=== PATIENT | female | born 1990 | race Caucasian/White ===

== ENCOUNTER 2019-12-24 12:41 | Observation (INO) | payer OTHER, SELFPAY ==
--- NOTE | 2019-12-24 12:41 | OBADM ---
This patient, Mayra Reilly, admitted to the OB room Labor/Delivery/Recovery 106 for observation. Patient/family oriented to hospital policies and general routines including ID bracelet, bed and alarms, visiting hours, pain management, procedures, bathroom and other care routines, personal items, smoking policy, room service/diet, and visiting hours. Patient/Family are encouraged to report perceived risks to care and to ask questions if they do not understand what they are told or what they should do.
[2019-12-24 12:55] VITALS: TEMP 36.3; BMI 37.4
[2019-12-24 13:16] VITALS: BP 115/56; PULSE 66
[2019-12-24 13:31] VITALS: BP 112/65; PULSE 58
[2019-12-24 13:46] VITALS: BP 116/73; PULSE 59
[2019-12-24 13:53] LABS: Add Urine Microscopic? YES; Appearance Urine Cloudy (Clear); Bacteria Urine Trace /hpf; Bilirubin Urine Negative (Negative); Blood Urine Negative (Negative); Calcium Oxalate Crystals Urine Many /hpf; Color Urine Yellow (Yellow); Glucose Urine UA Negative (Negative); Ketones Urine 2+ mg/dL (Negative); Leukocyte Esterase Ur Negative LEU/UL (NEGATIVE); Mucus Urine Heavy /lpf; Nitrate Urine Negative (Negative); Protein Urine Negative (Negative); RBC Urine 0-2 /hpf (0-2); Specific Grav Ur 1.016 (1.001-1.035); Squamous Epithelial Cell Urine Few /hpf (Few)
[2019-12-24 14:01] VITALS: BP 123/69; PULSE 56
[2019-12-24 14:16] VITALS: BP 109/57; PULSE 56
[2019-12-24] MEDS: DEXTROSE 5%/0.9% SOD CHL 1,000 ML 999 ML IV CONT (14:27)
[2019-12-24] MEDS: NITROFURANTOIN MONOHYD MACROCR 100 MG CAP (14:39)
[2019-12-24] MEDS: ACETAMINOPHEN 500 MG TABLET 1000 MG PO (15:51)
--- NOTE | 2020-01-01 13:12 | PM.OBTRLD ---
OB - Triage/Final Diagnosis Evaluation Laboratory results: Laboratory Tests 12/24/19 13:32 Urine Color Yellow Urine Appearance Cloudy H Urine pH 6.0 Ur Specific [place] 1.016 Urine Protein Negative Urine Glucose (UA) Negative Urine Ketones 2+ H Ur Blood (Man) Negative Urine Nitrate Negative Urine Bilirubin Negative Urine Urobilinogen 2.0 H Ur Leukocyte Esterase Negative Urine RBC 0-2 Urine WBC 7-9 H Ur Squamous Epith Cells Few Calcium Oxalate Crystal Many Urine Bacteria Trace Urine Mucus Heavy H Final Diagnosis (1) Pelvic pressure in : Code(s): O26.899 - Other specified related conditions, unspecified trimester; R10.2 - Pelvic and perineal pain Status: Acute
== END 2019-12-24 16:00 | disposition home or self-care (01) ==
PROVIDERS: Admitting Provider Obstetrics & Gynecology; Visit Provider Obstetrics & Gynecology
DX: O26.893 Other specified pregnancy related conditions, third trimester (principal); R10.2 Pelvic and perineal pain; Z3A.37 37 weeks gestation of pregnancy
CPT/HCPCS: 81001; 87086; 87088; A9270; G0378; G0379; J7042

== ENCOUNTER 2019-12-26 10:40 | Outpatient (RCR) | payer OTHER, SELFPAY ==
[2019-12-26 11:49] VITALS: BP 125/70; PULSE 68
== END 2020-01-08 07:38 | disposition home or self-care (01) ==
LOC: ANHOBOP 10:40
PROVIDERS: Visit Provider Obstetrics & Gynecology
DX: O36.8130 Decreased fetal movements, third trimester, not applicable or unspecified (principal); Z3A.37 37 weeks gestation of pregnancy
CPT/HCPCS: 59025

== ENCOUNTER 2020-01-07 06:01 | Inpatient (IN) | payer OTHER, SELFPAY ==
--- NOTE | 2020-01-06 22:00 | OBPPTRN ---
Patient transferred to post room # via ( ). Support person present. Oriented to unit, room, information board, rooming in, admission packet and security measures. Patient verbalizes understanding.
--- NOTE | 2020-01-06 22:00 | OBPPTRN ---
Patient transferred to post room #292 via wheelchair. Friends present at time of admission. Oriented to unit, room, information board, rooming in, admission packet and security measures. Patient verbalizes understanding.
[2020-01-07] VITALS (164 sets, daily range): BP systolic 103–168; BP diastolic 44–121; PULSE 33–164; RESP 16; TEMP 36.8–37.4; O2SAT 90–100; BMI 30.9; BMI 36.7
--- NOTE | 2020-01-07 06:23 | LDADM ---
This patient, Mayra Reilly, was admitted to Labor/Delivery/Recovery 106 on 01/07/20 at 06:01. Plans for cesearen section, pain management and were discussed with patient. Patient/family oriented to hospital policies and general routines including ID bracelet, bed and alarms, visiting hours, pain management, procedures, bathroom and other care routines, personal items, smoking policy, room service/diet and guest tray routines, infant security routines, and visiting hours. Patient/Family are encouraged to report perceived risks to care and to ask questions if they do not understand what they are told or what they should do. See OBIX for further documentation.
[2020-01-07 06:55] LABS: Basophils Percent Auto 0.3 % (0.2-1.2); Eosinophils Percent Auto 0.4 % (0-4.4); Hematocrit 36.1 % (37.0-47.0); Hemoglobin 11.9 g/dL (12.0-15.0); Immature Granulocyte Absolute 0.05 K/mm3 (0.00-0.031); Immature Granulocyte Percent A 0.5 % (0-0.5); Lymphocytes Absolute Auto 1.63 K/mm3 (0.9-3.2); Lymphocytes Percent Auto 16.7 % (18.3-44.2); Mean Corpuscular Hemoglobin 29.5 pg (26-34); Mean Corpuscular Volume 89.6 fl (80-100); Mean Platelet Volume 10.9 fl (7.4-10.4); Monocytes Absolute Auto 0.9 K/mm3 (0.1-0.6); Monocytes Percent Auto 9.2 % (2.6-8.5); Neutrophils Absolute Auto 7.1 K/mm3 (1.3-6.7); Neutrophils Percent Auto 72.9 % (45.5-73.1); Platelet Count Result 203 k/mm3 (150-375); Red Blood Count 4.03 M/mm3 (4.2-5.4); Red Cell Distribution Width 13.2 % (11.5-14.5); White Blood Count 9.8 K/mm3 (4.5-10.0)
[2020-01-07] MEDS: LACTATED RINGERS 1,000 ML 125 ML IV CONT ×3 (07:14→11:24)
--- NOTE | 2020-01-07 08:50 | WPDOBADMIT ---
Obstetrics - Admit Note Admission Note: record reviewed. 29 y/o at 39 weeks here desiring induction of labor. GBS neg. AVSS NST reactive TOCO: irregular contractions ABD soft, nontender, gravid, vertex EXT nontender Cervix 3/50/-2. AROM with clear fluid. IUPC placed. A: IUP at term with favorable cervix. P: Oxytocin. Anticipate .
[2020-01-07 09:25] LABS: Rapid Plasma Reagin Non-Reactive (NonReactive)
--- NOTE | 2020-01-07 11:20 | WPDANESEPP ---
Anes - Eval Pre Procedure Procedure: Labor Epidural Date/Time: 01/07/20 11:20 Surgeon: Dr. Daniel Preop Diagnosis: Labor Pain Pre Op Diagnosis: induction of labor Patient Data Age: 29 Gender: F Height: 5 ft 4 in Weight: 97 kg Last Vital Signs Temp 37.1 C 01/07/20 09:57 Pulse 63 01/07/20 11:19 BP 132/59 L 01/07/20 11:19 Pulse Ox 96 01/07/20 11:18 Allergies Allergy/AdvReac Type Severity Reaction Status Date / Time Penicillins Allergy Severe Anaphylaxis Verified 12/02/19 02:47 azithromycin Allergy Intermediate Rash Verified 12/02/19 02:53 [From Zithromax Z-Ben] morphine AdvReac Unknown Anaphylaxis Verified 12/26/19 12:18 Home Medications Medication Instructions Recorded Confirmed Type PNV cmb#95-ferrous fumarate-FA 1 tablet PO DAILY 12/16/19 12/26/19 History [] fluoxetine [Prozac] 40 mg PO DAILY 12/16/19 12/26/19 History zolpidem [Ambien] 5 mg PO HS PRN 12/16/19 12/26/19 History calcium carbonate [Calcium 600] 600 mg PO DAILY 12/26/19 12/26/19 History Laboratory Tests 01/07/20 01/07/20 01/07/20 06:47 06:47 06:47 WBC 9.8 K/mm3 K/mm3 (4.5-10.0) RBC 4.03 M/mm3 L M/mm3 (4.2-5.4) Hgb 11.9 g/dL L g/dL (12.0-15.0) Hct 36.1 % L % (37.0-47.0) MCV 89.6 fl fl (80-100) MCH 29.5 pg pg (26-34) MCHC 33.0 g/dl g/dl (32-36) RDW 13.2 % % (11.5-14.5) Plt Count 203 k/mm3 k/mm3 (150-375) MPV 10.9 fl H fl (7.4-10.4) Immature Gran % (Auto) 0.5 % % (0-0.5) Neut % (Auto) 72.9 % % (45.5-73.1) Lymph % (Auto) 16.7 % L % (18.3-44.2) [place] % (Auto) 9.2 % H % (2.6-8.5) Eos % (Auto) 0.4 % % (0-4.4) Baso % (Auto) 0.3 % % (0.2-1.2) Lymph # (Auto) 1.63 K/mm3 K/mm3 (0.9-3.2) [place] # (Auto) 0.9 K/mm3 H K/mm3 (0.1-0.6) Eos # (Auto) 0.0 K/mm3 K/mm3 (0-0.3) Baso # (Auto) 0.0 K/mm3 K/mm3 (0.0-0.1) Abs Immat Gran (auto) 0.05 K/mm3 H K/mm3 (0.00-0.031) Absolute Neuts (auto) 7.1 K/mm3 H K/mm3 (1.3-6.7) Absolute Nucleated RBC 0.0 K/mm3 K/mm3 (0.0-0.012) Nucleated RBC % 0.0 % % (0.0-0.2) RPR Non-reactive (NonReactive) Blood Type O Positive Antibody Screen Negative : gestational age (SMOOTH 01/14/20) HCG: positive Patient hx anesthesia problems: none Family hx anesthesia problems: none [facility] Family History Family History Other Diabetes mellitus Heart disease Hypertension Social History Social History Smoking status: Never smoker Substance use: never Gender identity (if verbalized by the patient): Female Spiritual care concerns: No Exam Day of Procedure 01/07/20 11:20 Patient weight: obese Heart: regular rate and rhythm Lungs: normal air movement Airway: Mallampati scale class II Neurological: alert and oriented
--- NOTE | 2020-01-07 12:10 | PM.OBPNLAB ---
Pain Control Date/time seen: 01/07/20 12:48 Comments: Comfortable with epidural. Pelvic Exam Dilation (cm): 5 Effacement (%): 80 station: -2 Comments: AVSS NST reactive TOCO: Contractions every 2-3 min Continue labor.
--- NOTE | 2020-01-07 17:50 | PM.OBPNLAB ---
Pain Control Date/time seen: 01/07/20 9435 Comments: Pushing. Pelvic Exam Comments: AVSS NST reactive TOCO: contractions every 2-3 min Cervix C/+1, ROP Continue pushing.
--- NOTE | 2020-01-07 17:50 | P.PNOB_ITS ---
Pain Control Date/time seen: 01/07/20 6377 Comments: Pushing. Pelvic Exam Comments: AVSS NST reactive TOCO: contractions every 2-3 min Cervix C/+1, ROP Continue pushing.
--- NOTE | 2020-01-07 19:23 | PM.OBPRVD ---
OB - Delivery Note Procedure Delivery date: 01/07/20 Procedure: Induction of labor with Induction method: AROM and per pitocin protocol Delivery monitor: external FHT, external uterine and internal FHT Route of delivery: Delivery repair: vicryl (3-0 Vicryl) Specimen: Yes (Cord blood) Estimated blood loss (mL): 345 Anesthesia type: Epidural Disposition: PACU Complications: None Narrative: [id number] 3 para 0020 at 39 weeks gestation who presented to the hospital for induction of labor. Oxytocin was administered intravenously. Amniotomy was performed with return of clear fluid. She received an epidural for pain control. Her labor progressed and her cervix dilated completely. She pushed with good effort. The rotated from the right occiput posterior position to the right occiput anterior position, and the head delivered to the perineum. A loose nuchal cord was splinted. The body delivered. The cord was reduced. The nose and mouth were bulb suctioned. After a delay, the cord was clamped and cut. The infant was handed off the field. Cord blood was collected. The placenta delivered spontaneously and was grossly normal in appearance. The usual 3 vessel cord was noted. A right labial laceration was reapproximated with a single [id number] suture of 3 O Vicryl. Distal vaginal lacerations were similarly reapproximated. Excellent hemostasis resulted as did excellent reapproximation of the normal anatomy. Needle and instrument counts were correct. The patient was taken to recovery room in stable condition. The infant went to the nursery in stable condition. I was present and scrubbed for the entire delivery. Baby Date of : 01/07/20 Time of : 19:00 Weeks of gestation at delivery: 39 Infant gender: Female Weight (pounds): 6 Weight (ounces): 12 presentation: vertex position: Right Occiput Anterior Placenta delivery description: Spontaneous and Normal Configuration cord vessel description: 3 Vessels score one minute: 8 score five minutes: 9
--- NOTE | 2020-01-07 19:29 | P.DS_ITS ---
DS: Diagnosis Admitting Diagnosis Admitting Diagnosis: IUP at 39 weeks Discharge Diagnosis (1) (normal spontaneous vaginal delivery): Code(s): O80 - Encounter for full-term uncomplicated delivery Status: Acute DS: Summary Time Spent with Patient Time attestation: Total time spent providing and/or coordinating discharge services: DS: Data Data Completed and Pending Labs on day of discharge: Labs from last 24 hours 01/07/20 01/07/20 01/07/20 06:47 06:47 06:47 WBC 9.8 RBC 4.03 L Hgb 11.9 L Hct 36.1 L MCV 89.6 MCH 29.5 MCHC 33.0 RDW 13.2 Plt Count 203 MPV 10.9 H Immature Gran % (Auto) 0.5 Neut % (Auto) 72.9 Lymph % (Auto) 16.7 L [place] % (Auto) 9.2 H Eos % (Auto) 0.4 Baso % (Auto) 0.3 Lymph # (Auto) 1.63 [place] # (Auto) 0.9 H Eos # (Auto) 0.0 Baso # (Auto) 0.0 Abs Immat Gran (auto) 0.05 H Absolute Neuts (auto) 7.1 H Absolute Nucleated RBC 0.0 Nucleated RBC % 0.0 RPR Non-reactive Blood Type O Positive Antibody Screen Negative Discharge Plan Discharge Attending physician on discharge: Chemo Daniel Discharging Clinician: Chemo Daniel Patient Disposition: Home, Self-Care Activity: pelvic rest Diet: regular Discharge Instructions: Call or return if temperature above 100.4? F, increased abdominal pain, increased vaginal bleeding or any new problems. Stand Alone Forms: General Discharge Information Follow-up/Referrals: Chemo Daniel MD [Physician] - (6 weeks) Discharge Medications: New hydrocodone-acetaminophen [[place]] 5-325 mg tablet 1 tablet PO Q6H PRN (Reason: pain) Qty: 20 RF: 0 fluoxetine 40 mg capsule 40 mg PO QAM Qty: 30 RF: 1 ibuprofen 600 mg tablet 600 mg PO Q6H PRN (Reason: cramps) Qty: 30 RF: 0 Continued fluoxetine [Prozac] 20 mg Capsule 40 mg PO DAILY Qty: 30 RF: 1 No Action zolpidem [Ambien] 5 mg Tablet 5 mg PO HS PRN (Reason: Sleep) RF: 0 PNV cmb#95-ferrous fumarate-FA [] 28 mg iron- 800 mcg Tablet 1 tablet PO DAILY RF: 0 calcium carbonate [Calcium 600] 600 mg calcium (1,500 mg) Tablet 600 mg PO DAILY RF: 0 Date of admission: 01/07/20 06:01 Primary Care Provider: UNKNOWN,DOCTOR Admitting Provider: Chemo Daniel Attending physician on admission: Chemo Daniel
[2020-01-07] MEDS: WITCH HAZEL 40 PADS 1 PAD TOPICAL (20:26)
[2020-01-07] MEDS: BENZOCAINE 20% AER SPR (*SP) 56 GM CAN 1 SPRAY TOPICAL (20:26)
[2020-01-07] MEDS: IBUPROFEN 600 MG TABLET PO (20:27)
[2020-01-07] MEDS: LANOLIN (LANSINOH) 7.5 GM CREAM 1 APPLIC TOPICAL (23:51)
[2020-01-07] MEDS: DIBUCAINE 1% OINTMENT 30 GM TUBE 1 APPLIC TOPICAL (23:51)
--- NOTE | 2020-01-08 03:40 | PC.NURSE ---
Breast pump provided due to mother request and inability for to latch successfully since . Instructions given on breast pump care and usage, pumping schedule, nipple care, and collection and storage of breast milk. Encouraged [id number], breast massage and manual expression to stimulate supply. Pumping log provided and reviewed. Assessed patient for correct flange size, placement and draw. Pt given a 27mm flange for right breast and 24mm flange for left breast. Patient verbalizes and demonstrates understanding of instructions.
[2020-01-08] MEDS: IBUPROFEN 600 MG TABLET PO ×3 (04:09→20:04)
[2020-01-08 05:36] LABS: Hematocrit 32.5 % (37.0-47.0); Hemoglobin 10.7 g/dL (12.0-15.0)
[2020-01-08 08:00] VITALS: BP 113/75; PULSE 85; RESP 18; TEMP 36.6; O2SAT 100
[2020-01-08] MEDS: MULTIVIT/MIN/PREN/FOL AC/IRON TABLET 1 TAB PO (08:35)
[2020-01-08] MEDS: LANOLIN (LANSINOH) 7.5 GM CREAM 1 APPLIC TOPICAL (08:35)
[2020-01-08] MEDS: DOCUSATE SODIUM 100 MG CAPSULE PO ×2 (08:35→17:36)
[2020-01-08] MEDS: WITCH HAZEL 40 PADS 1 PAD TOPICAL (08:35)
[2020-01-08] MEDS: BENZOCAINE 20% AER SPR (*SP) 56 GM CAN 1 SPRAY TOPICAL (08:35)
[2020-01-08] MEDS: FLUOXETINE HCL 20 MG CAP 40 MG PO (08:36)
--- NOTE | 2020-01-08 08:45 | PM.OBPNVD ---
OB - PN: Subj Subjective Date/time seen: 01/08/20 0845 Narrative: Pain OK. OB - PN: Obj Data Labs CBC & Chem 7: 01/08/20 04:12 Labs: Laboratory Results - last 24 hr 01/08/20 04:12 Hgb 10.7 L Hct 32.5 L OB - PN A/P Plan Comments: A: PPD#1, doing well. P: Routine care. Exam Psych: Other: AVSS ABD soft, nontender, fundus firm EXT nontender
--- NOTE | 2020-01-08 11:20 | PCCCNOTE ---
Care Coordination. Pt. referred to CC for 's recent by suicide a month ago. Pt. reports having great family support from her family as well as late 's family. She appeared in good spirits and bonding with baby during my visit. She had baby shower and got all necessary baby care items and more. She plans to go home with her mother for a night or two. She has friends that are going to be coming to help additionally as well as late 's family as well. She is currently seeing a counselor weekly, but I did give her more names as well. Discussed grief and post with pt. and to be watching for signs. Pt. encouraged to reach out to family, friends, and counselor as much as needed. Pt. is setup with WIC also. No further SS needs.
--- NOTE | 2020-01-08 13:20 | PC.NURSE ---
Consulted with patient, mother reports infant has been sleepy and unable to latch due to tied tongue. Mother is pumping and giving EBM each feeding. Mother has attempted latch using nipple shield without a successful latch. Infant has been gaggy and spitty since . Frenulum is noted to end of tongue, tongue does not go past gum ridge. Reviewed infant feeding cues, frequencies, duration of feedings, feeding elimination flow sheet, and signs of adequate intake. Demonstrated stimulation techniques to wake for feeding. Assisted with infant to breast. Reviewed positioning/alignment in cross , holding breast in U hold and guided asymmetrical latch on. Discussed rational for each. Infant was unable to latch correctly. Assisted with bottle feeding, Infant does not suck rhythmically. has a short chewy suck on bottle nipple. Report to [facility].
[2020-01-08 20:00] VITALS: BP 117/66; PULSE 68; RESP 18; TEMP 36.2
[2020-01-09] MEDS: TETANUS,DIPHTHERIA,AC PERTUSSIS ADULT 0.5 ML (ADACEL) IM (05:25)
[2020-01-09] MEDS: IBUPROFEN 600 MG TABLET PO (05:30)
--- NOTE | 2020-01-09 08:45 | PC.NURSE ---
Mother continues to work with latching infant, infant is sleepy and makes eager efforts to latch. is able to maintain latch for bursts after tongue frenulectomy. Mother is able to independently latch with appropriate positioning/alignment. Infant remains sleepy and mother will supplement after all feedings. She continues to pump after each attempts. She denies any nipple discomfort, is feeding as required and waking to feed if needed. is currently meeting outcomes for weight, output, jaundice and feeding frequencies. Mother states she feels confident to continue current feeding plan at home. Reviewed transition to breast milk, signs of adequate intake, and engorgement/relief. Instructed to call ICP if intake/output less than required. Reviewed regular medications mother is taking. Information provided per Nelsy. Reviewed community resources on the [facility] website and in the Mom/Baby guide. Information on outpatient services provided. Mother has no further questions at this time. Mother is a [facility] client and will follow with local office with assistance, as it is closer to her home. Mother has a pump for home use and is pumping without difficulties.
[2020-01-09 08:50] VITALS: BP 134/66; PULSE 67; RESP 18; TEMP 36.1
[2020-01-09] MEDS: MULTIVIT/MIN/PREN/FOL AC/IRON TABLET 1 TAB PO (08:53)
[2020-01-09] MEDS: FLUOXETINE HCL 20 MG CAP 40 MG PO (08:54)
--- NOTE | 2020-01-09 09:00 | PM.OBPNVD ---
OB - PN: Subj Subjective Date/time seen: 01/09/20 09:00 Narrative: Pain OK. Would like to go home. OB - PN: Obj Data Labs CBC & Chem 7: 01/08/20 04:12 OB - PN A/P Plan Comments: A: PPD#2, doing well. P: Home to f/u 6 weeks. Exam Psych: Other: AVSS ABD soft, nontender, fundus firm EXT nontender
[2020-01-10 08:28] VITALS: BP 110/72; PULSE 74; RESP 20; TEMP 36.9
== END 2020-01-09 12:34 | disposition home or self-care (01) | DRG 560 ==
LOC: ANHLDR 19:31 → ANHOB2 22:27
PROVIDERS: Admitting Provider Obstetrics & Gynecology; Visit Provider Obstetrics & Gynecology
DX: O69.81X0 Labor and delivery complicated by cord around neck, without compression, not applicable or unspecified (principal); Z37.0 Single live birth; Z3A.39 39 weeks gestation of pregnancy; O99.214 Obesity complicating childbirth; E66.9 Obesity, unspecified; O75.2 Pyrexia during labor, not elsewhere classified; O71.4 Obstetric high vaginal laceration alone
CPT/HCPCS: 36415; 85014; 85018; 85025; 86592; 86850; 86900; 86901; 90715; A9270; J2590; J2795; J3010; J7120

== ENCOUNTER 2020-06-26 02:44 | Day surgery (SDC) | payer OTHER, SELFPAY ==
--- NOTE | 2020-06-25 15:09 | PM.IMHP ---
H&P: HPI History of Present Illness Chief complaint: pain Narrative: Mayra Reilly is a 29 year old female 3 para 1 who is admitted for diagnostic laparoscopy. He has had chronic left-sided pain. Not been sharp comparable. She had a CT scan in the emergency department in [place] which showed an ovarian cyst. She underwent ultrasound here with no definitive findings. Her pain continues to be severe and unrelenting. She is offered diagnostic laparoscopy. Risks and benefits were reviewed in full Review of Systems Review of Systems: All systems reviewed & are unremarkable except as noted in HPI and below PMFSH Family History Family History Other Diabetes mellitus Heart disease Hypertension Social History Social History Smoking status: Never smoker Substance use: never Gender identity (if verbalized by the patient): Female Spiritual care concerns: No Meds Home Medications and Allergies Home Medications Medication Instructions Recorded Confirmed Type PNV cmb#95-ferrous fumarate-FA 1 tablet PO DAILY 12/16/19 12/26/19 History [] fluoxetine 40 mg PO QAM #30 cap 01/08/20 Rx hydrocodone-acetaminophen [[place]] 1 tablet PO Q6H PRN #20 tablet 01/08/20 Rx ibuprofen 600 mg PO Q6H PRN #30 tablet 01/09/20 Rx lanolin [[id number]] 1 applic TOPICAL PRN PRN g 01/09/20 Rx Allergies Allergy/AdvReac Type Severity Reaction Status Date / Time Penicillins Allergy Severe Anaphylaxis Verified 06/25/20 15:16 azithromycin Allergy Intermediate Rash Verified 06/25/20 15:16 [From Zithromax Z-Ben] morphine AdvReac Unknown Anaphylaxis Verified 06/25/20 15:16 MORPHINE SUB-Q Allergy Intermediate RASH/SWELLI Uncoded 02/28/20 08:09 NG Exam Const: General: no acute distress Eyes: General: appearance normal, both eyes and all related structures Neck: Neck: supple and no JVD Thyroid: thyroid normal Resp: Effort & Inspection: normal respiratory effort Auscultation: clear to auscultation bilaterally Cardio: Rate: regular rate Rhythm: regular rhythm GI: Inspection: non-distended GI Palp: Yes Soft to palpation, No Tenderness to palpation present (GI) and No Guarding due to palpation present (GI) Auscultation: normal bowel sounds : General: Yes bladder normal to inspection External Female Exam: normal external appearance Speculum Exam - Vagina: normal appearance of the vagina Speculum Exam - Cervix: normal appearance of the cervix and Cervical tenderness present Bimanual exam- vagina & uterus: Cervical tenderness present and Uterine tenderness Bimanual Exam- Adnexa, other: tender Skin: General skin exam: no rashes or lesions noted Extrem: General: normal to inspection and no edema Psych: Mental Status: mental status grossly normal Affect: normal affect Assessment and Plan Additional Plan impression: Pelvic pain Plan: Diagnostic laparoscopy
[2020-06-25 15:15] VITALS: BMI 33.6
[2020-06-26] VITALS (9 sets, daily range): BP systolic 105–148; BP diastolic 55–89; PULSE 61–104; RESP 12–22; TEMP 36.1–36.4; O2SAT 95–100
--- NOTE | 2020-06-26 06:45 | WPDHPUPDATE1 ---
History and Physical Update Update Date/Time: 06/26/20 06:45 History and Physical has been reviewed, including an updated exam of the patient. There are NO changes in the patient's condition. Risks, benefits, and alternatives have been discussed and questions answered. Patient agrees to proceed with procedure.
[2020-06-26] MEDS: LACTATED RINGERS 1,000 ML 30 ML IV CONT ×2 (10:25→12:06)
[2020-06-26] MEDS: KETOROLAC 15 MG/ML VIAL (*BKC) IV PUSH (10:33)
[2020-06-26] MEDS: ACETAMINOPHEN 500 MG TABLET 1000 MG PO (10:33)
--- NOTE | 2020-06-26 10:38 | WPDANESEPPF ---
Anes - Initial Pre Proc Eval Procedure: Operation Date: 06/26/20 11:30 Proposed Procedures p Diagnostic Laparoscopy - Gianfranco Macdonald MD Date/Time: 06/26/20 10:38 Surgeon: Gianfranco Macdonald MD Pre Op Diagnosis: pain Patient Data Age: 29 Gender: F Height: 5 ft 4 in Weight: 88.9 kg Allergies Allergy/AdvReac Type Severity Reaction Status Date / Time Penicillins Allergy Severe Anaphylaxis Verified 06/25/20 15:16 azithromycin Allergy Intermediate Rash Verified 06/25/20 15:16 [From Zithromax Z-Ben] morphine AdvReac Unknown Anaphylaxis Verified 06/25/20 15:16 Home Medications Medication Instructions Recorded Confirmed Type PNV cmb#95-ferrous fumarate-FA 1 tablet PO DAILY 12/16/19 06/25/20 History [] fluoxetine 40 mg PO QAM #30 cap 01/08/20 06/25/20 Rx hydrocodone-acetaminophen [[place]] 1 tablet PO Q6H PRN #20 tablet 01/08/20 06/25/20 Rx alprazolam 0.5 mg PO DAILY PRN 06/25/20 06/25/20 History hydrocodone-acetaminophen [[place]] 1 tablet PO Q4H PRN #20 tablet 06/26/20 Rx Patient hx anesthesia problems: none Family hx anesthesia problems: none PMFSH Past Medical History Medical History (Updated 06/26/20 @ 10:38 by Albino Melgar MD) Anxiety Depression Migraine Family History Family History Other Diabetes mellitus Heart disease Hypertension Social History Social History Smoking status: Never smoker Alcohol intake: current Drinks per week: 1 Substance use: never Gender identity (if verbalized by the patient): Female Spiritual care concerns: No Anes - Eval Final PreProcedure Day of Procedure 06/26/20 10:38 Patient weight: overweight Heart: regular rate and rhythm Lungs: clear to auscultation Airway: Mallampati scale class II Neurological: alert and oriented Last oral intake: >/= 8 hours ASA classification: II Emergent: no Anesthetic plan: proceed Anesthesia type and monitoring: general ETT and standard monitoring Informed Consent: The patient's anesthetic plan and its attendant risks and benefits were discussed with the patient/family/POA. Questions were solicited and answers provided to the satisfaction of the patient/family/POA.
--- NOTE | 2020-06-26 11:53 | P.OP_ITS ---
Procedure Note - Detailed Date of procedure: 06/26/20 Pre-op diagnosis: pain Surgeon: Gianfranco Macdonald MD Postop diagnosis pelvic pain/ endometriosis /adhesions Procedure: Diagnostic laparoscopy / lysis of adhesions/ destruction of endometriosis Anesthesia: General tracheal EBL: 5Cc Complications: None Findings: Normal-appearing uterus normal-appearing tubes a large left ovarian cyst the left tube was adhesed to the large bowel. Assessment small area of endometriosis on the in the cul-de-sac on the low Description procedure. : The patient was prepped draped and placed in dorsal lithotomy position. Under excellent general trach anesthesia weighted speculum placed in posterior fornix of vagina. Anterior lip of the cervix grasped with a single-tooth tenaculum. The endocervix an inserted a is Styles's cannula and attached to the single-tooth to be used later for uterine manipulation. The bladder was emptied of clear urine. The weighted speculum was removed. The gloves were changed. An infraumbilical incision made the Veress needle passed in the abdomen. The abdomen was filled with CO2 gas [id number]. The 5mm trocar was advanced in the abdomen under direct visualization assuring no injury. The patient placed in Trendelenburg and a suprapubic incision made. The 5mm trocar was advanced under direct visualization into the abdomen assuring no injury. The adhesions from the tube to the colon was noted and this was sharply dissected. A small area of endometriosis was seen in the cul-de-sac along the left uterosacral ligament. This was cauterized at 35 w per 2nd. The remainder of the pelvis appeared within normal limits and photo documentation was undertaken. The lower site r emoved. The gas removed from the abdomen. The lower site removed and the incisions closed with 4 Monocryl and glue. All sponge, needle, instrument counts were correct. There were no immediate complications. She was discharged home on ciprofloxacin 500 mg twice a day for the next 7 days and follow up in 10 days
--- NOTE | 2020-06-26 12:19 | SUR.PHASEI ---
1215 - pt with upper body jerking motion. Dr. Melgar aware and at bedside. pt opens eyes and follows commands. pt denies pain when asked. vss. will continue to monitor
--- NOTE | 2020-06-26 12:50 | SUR.PHASEI ---
1235 - jerking motion subsided. pt stated that she has been told that she has had jerking motions from past surgeries.
== END 2020-06-26 14:05 | disposition home or self-care (01) ==
PROVIDERS: Visit Provider Obstetrics & Gynecology
PROC: (CPT 49320; principal; 2020-06-26 11:30)
DX: R10.2 Pelvic and perineal pain (principal); N80.3 Endometriosis of pelvic peritoneum; N73.6 Female pelvic peritoneal adhesions (postinfective); N83.202 Unspecified ovarian cyst, left side; F41.8 Other specified anxiety disorders
CPT/HCPCS: 58662; 36415; 86850; 86900; 86901; A9270; J0330; J1100; J1885; J2250; J2405; J2704; J3010; J7120

== ENCOUNTER 2020-09-04 14:35 | Outpatient (CLI) | payer OTHER, SELFPAY ==
[2020-09-04 16:24] LABS: Beta HCG Quantitative < 2.39 mIU/ML
== END 2020-09-04 14:36 | disposition home or self-care (01) ==
LOC: ANHLAB 14:36
PROVIDERS: Visit Provider Student in an Organized Health Care Education/Training Program
DX: Z32.00 Encounter for pregnancy test, result unknown (principal)
CPT/HCPCS: 36415; 84702